=== PATIENT | male | born 1990 | race African-American/Black ===

== ENCOUNTER 2019-03-09 19:39 | Emergency (ER) | payer OTHER ==
[~2019-03-09] VITALS: Ht 180.3 cm; Wt 88.5 kg
[2019-03-09] MEDS ORDERED: NOHOMEMEDICATIONS PO (20:11)
[2019-03-09] MEDS ORDERED: LIDOCAINE PAIN1 EACH TOP (21:03)
[2019-03-09] MEDS ORDERED: MOBIC15 MG PO (21:03)
[2019-03-09] MEDS ORDERED: CYCLOBENZAPRINE5 MG PO (21:03)
[2019-03-09 21:15] VITALS: BP 119/78
== END 2019-03-09 21:15 | disposition home or self-care (01) ==
LOC: ER 19:39
DX: M54.5 Low back pain (principal); M54.2 Cervicalgia; V43.52XA Car driver injured in collision with other type car in traffic accident, initial encounter; Y93.89 Activity, other specified; Y92.411 Interstate highway as the place of occurrence of the external cause; Y99.8 Other external cause status